=== PATIENT | male | born 2005 | race Caucasian/White ===

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

== ENCOUNTER 2024-03-22 21:08 | Emergency (ER) | payer MEDICAID, SELFPAY ==
[2024-03-22 21:10] VITALS: BP 138/114; PULSE 109; RESP 18; TEMP 36.6; O2SAT 96
--- NOTE | 2024-03-22 23:02 | EDS_ITS ---
HPI History of Present Illness Chief Complaint: Allergic Reaction Informant: patient Narrative Narrative: Patient is a 18-year-old male with past medical history of of anxiety. He states that he ate salsa today and then developed a rash/welts across his head and face that then began to spread down his body. He states he took [id number] Benadryl and there was improvement of symptoms but then they returned and secondary to the return of the rash presents for evaluation. At this time he denies any trouble breathing or swallowing. He does state he also has used a new shampoo recently but is confident that his symptoms are related to the ingestion of salsa prior to the rash beginning PFSH PFSH Medical History Nicotine dependence ABIGAIL (generalized anxiety disorder) Mood disorder ADD (attention deficit disorder) Home Medications ?Medication ?Instructions ?Recorded ?Last Taken ?Type bupropion HCl 300 mg 24 hr tablet, 300 mg PO QAM 90 days #90 tabs 02/28/24 Unknown Rx extended release escitalopram oxalate 10 mg tablet 10 mg PO DAILY #30 tabs 02/28/24 Unknown Rx (Lexapro) prednisone 10 mg tablet 10 mg PO UD #33 tabs 03/22/24 Unknown Rx Allergy/AdvReac Type Severity Reaction Status Date / Time sertraline (From Zoloft) Allergy Severe Other Verified 03/22/24 21:09 lisdexamfetamine (From AdvReac Other Verified 03/22/24 21:09 Vyvanse) Family History Other Alcoholism Anemia Anxiety Arthritis Asthma Cancer Diabetes Liver disease Mental disorder Seizures Surgical History Hx of tonsillectomy Social History Smoking Status: Current every day smoker tobacco type: cigarettes alcohol intake: never substance use type: does not use what type of physical activity do you participate in: none ROS ROS ED Constitutional Constitutional ED: Denies chills or fever(s) Eyes Eyes: Denies blurry vision or change in vision ENT ENT ED: Denies sore throat Cardiovascular Cardiovascular: Denies chest pain, palpitations or racing heartbeat Respiratory/Chest Respiratory/Chest: Denies cough or dyspnea Gastrointestinal Gastrointestinal: Denies abdominal pain, diarrhea, nausea or vomiting Genitourinary Genitourinary ED: Denies dysuria Musculoskeletal Musculoskeletal: Denies myalgias Integumentary Reports rash Neurologic Neurologic: Denies headache(s) Hematologic/Lymphatic Hematologic/Lymphatic: Denies easy bleeding or easy bruising Allergic/Immunologic Allergic/Immunologic ED: Reports urticaria; Denies mouth swelling or tongue swelling EXAM Physical Exam Const Vital Signs: 03/22/24 21:10 Temperature 97.8 F Temperature Source Temporal Pulse Rate 109 H Respiratory Rate 18 Blood Pressure 138/114 H Blood Pressure Mean 122 Pulse Ox 96 Oxygen Delivery Method Room Air Positive well nourished and well developed General Appearance ED: well developed HEENT HEENT Narrative: Patient has a erythematous urticarial blanchable rash across the forehead cheeks and chin that also extends into the upper back and chest No tongue or lip swelling No oral lesions no airway edema or compromise Eyes PERRL and EOMs intact bilaterally Neck supple Resp normal respiratory effort and clear to auscultation bilaterally Resp Narrative: No nasal flaring retractions tachypnea or accessory muscle use Cardio regular rate and regular rhythm Extremity normal to inspection Neuro oriented x3, CN's II-XII intact bilaterally and no sensory deficits noted Sensorium / Orientation: alert Motor Exam: strength 5/5 throughout Psych Mood & Affect: anxious Skin Skin Narrative: Urticarial-like lesions across the forehead cheeks upper back and chest without involvement of the palms or soles or into the lower extremity MDM MDM MDM Narrative Medical decision making narrative: Patient arrived to the ER hypertensive but otherwise in no acute distress. He states he ate salsa and then developed a rash. The exam is consistent with allergic reaction with urticaria but he does not have tongue or lip swelling oral lesions or airway compromise therefore there is no need for emergent airway stabilization. The distribution of the rash would suggest this is more contact related to his recent change in shampoo. The patient is more adamant that it is related to the food ingestion even though the rash does not start on the abdomen or chest and progressed out it was all in the head and down. Either way he does not have signs of Henderson-Trevor syndrome he is not in anaphylaxis he does not have airway compromise there is no need for workup other than treatment with steroids at this time and he safe for discharge History & Record Review Discussion w/independent historian: Patient Discharge Plan Triage Chief Complaint: Allergic Reaction ED Provider: Maninder Echeverria Dx/Rx/DC Orders Clinical Impression: Allergic reaction, ABIGAIL (generalized anxiety disorder), ADHD Instructions: ED General Allergic Reactions Prescriptions: New prednisone 10 mg tablet 10 mg PO UD Qty: 33 0RF Rx Instructions: Take 4 tablets daily for 3 days, then 3 daily for 3 days, then 2 daily for 3 days, then 1 a day for 3 days then 1 QOD for 3 doses. No Action bupropion HCl 300 mg tablet extended release 24 hr 300 mg PO QAM 90 Days Qty: 90 2RF escitalopram oxalate [Lexapro] 10 mg tablet 10 mg PO DAILY Qty: 30 2RF Primary Care Provider: Jv Mcdaniel Referrals: Jv Mcdaniel MD [Primary Care Provider] - Dejuan Christian MD [Med Staff - [employer]] - Activity Restrictions/Additional Instructions: Use the prednisone for improved allergic reaction control. You may continue up to 2 Benadryl 3 times a day if needed for further allergic reaction relief. Follow-up with your family doctor for repeat evaluation and return to the ER should you have any further concern Print Language: [place] Citizen Disposition Disposition: Home, Self Care Discharge Date/Time: 03/22/24 23:18
[2024-03-22 23:17] VITALS: BP 135/99; PULSE 81; RESP 16; TEMP 36.6; O2SAT 99
[2024-03-22] MEDS: predniSONE 20 MG Tablet 60 MG PO (23:17)
== END 2024-03-22 23:18 | disposition home or self-care (01) ==
PROVIDERS: Emergency Provider Emergency Medicine; PCP Family Medicine; Visit Provider Emergency Medicine
DX: T78.40XA Allergy, unspecified, initial encounter (principal); F41.1 Generalized anxiety disorder; F90.9 Attention-deficit hyperactivity disorder, unspecified type; F17.210 Nicotine dependence, cigarettes, uncomplicated; Z79.899 Other long term (current) drug therapy; X58.XXXA Exposure to other specified factors, initial encounter
CPT/HCPCS: 99283

== ENCOUNTER 2024-06-21 15:01 | Emergency (ER) | payer MEDICAID, SELFPAY ==
[2024-06-21 15:02] VITALS: BP 118/105; PULSE 120; RESP 18; TEMP 37.2; O2SAT 98
--- NOTE | 2024-06-21 15:15 | EX.ED.DYSGE1 ---
HPI <KAUSHIK Armenta - Last Filed: 06/21/24 16:26> History of Present Illness Chief Complaint: Nausea/Vomiting Narrative Narrative: Patient is a 18-year-old male with history of obesity, anxiety, depression who presents emerged permit with nausea vomiting diarrhea that began last evening. Per the mother, patient did have an infection in his bowels a few months that required antibiotics. There is concern. Pay states that the vomiting has decreased slightly however he is extremely nauseous. He is also had continued diarrhea 3-4 times a day. Here for evaluation. Denies any blood in stool or vomit. PFSH <KAUSHIK Armenta - Last Filed: 06/21/24 16:26> PFS Medical History Nicotine dependence ABIGAIL (generalized anxiety disorder) Mood disorder ADD (attention deficit disorder) Home Medications ?Medication ?Instructions ?Recorded ?Last Taken ?Type bupropion HCl 300 mg 24 hr tablet, 300 mg PO QAM 90 days #90 tabs 02/28/24 Unknown Rx extended release cetirizine 10 mg tablet 10 mg PO BID 05/07/24 Unknown History escitalopram oxalate 20 mg tablet 20 mg PO DAILY #30 tabs 05/07/24 Unknown Rx dicyclomine 20 mg tablet 20 mg PO TID #20 tabs 06/21/24 Unknown Rx ondansetron 4 mg disintegrating 4 mg PO Q8H PRN PRN Nausea #10 tabs 06/21/24 Unknown Rx tablet Allergy/AdvReac Type Severity Reaction Status Date / Time sertraline (From Zoloft) Allergy Severe Other Verified 06/21/24 15:02 lisdexamfetamine (From AdvReac Other Verified 06/21/24 15:02 Vyvanse) Family History Other Alcoholism Anemia Anxiety Arthritis Asthma Cancer Diabetes Liver disease Mental disorder Seizures Surgical History Hx of tonsillectomy Social History Smoking Status: Current every day smoker tobacco type: cigarettes alcohol intake: never substance use type: does not use what type of physical activity do you participate in: none ROS <VERN ArmentaC - Last Filed: 06/21/24 16:26> ROS ED ROS Narrative Constitutional: Negative for fever, chills, weight loss, weakness Eyes: Negative for vision loss, vision change, double vision ENT: Negative for any sore throat, ear pain, congestion Cardiovascular: Negative for any chest pain, tightness, palpitations Respiratory: Negative for any cough, sputum production, hemoptysis, dyspnea, dyspnea on exertion, orthopnea Gastrointestinal: Negative for any constipation, blood in stool, blood in vomit. Positive for abdominal cramping, nausea vomiting diarrhea : Negative for any urinary frequency, dysuria, retention, blood in urine Muscle skeletal: Negative for any neck pain, back pain Neurological: Negative for any headache, syncope, dizziness Skin: Negative for any rashes, itching, abrasions, lacerations Psychiatric: Negative for any depression, anxiety, stress, suicidal ideation, homicidal ideation Hematologic: Negative for any excessive bruising, easy bleeding EXAM <KAUSHIK Armenta - Last Filed: 06/21/24 16:26> Physical Exam Narrative Exam Narrative: Vital signs reviewed. Patient is in no distress, slightly tachycardic HEET: Head normocephalic atraumatic, TMs clear bilaterally. Posterior pharynx is clear, dry mucous membranes. Nares clear bilaterally. Neck: Supple with no lymphadenopathy or tenderness. No signs of meningismus. Cardiac: Regular rate and rhythm no murmurs gallops or rubs, equal peripheral pulses bilaterally. Respiratory: Lungs clear to auscultation bilaterally. No chest tenderness. Abdomen: Soft, nontender, nondistended. No abdominal bruit or pulsatile masses. No hepatosplenomegaly. Active bowel sounds in all quadrants Extremities: No peripheral edema, no signs of gross trauma or deformity. Active full range of motion of all extremities. Neuro: Cranial nerves II through XII intact, no focal neurological deficits. Skin: Clean dry and intact with no rash, purpura, petechiae, vesicles or pustules. Backs/flank: No CVA tenderness, no midline spinal tenderness, no deformity. Psych: Normal mood and affect. No SI, HI or acute psychosis. Const Vital Signs: 06/21/24 15:02 Temperature 98.9 F Temperature Source Oral Pulse Rate 120 H Respiratory Rate 18 Blood Pressure 118/105 H Blood Pressure Mean 109 Pulse Ox 98 Oxygen Delivery Method Room Air Positive well nourished, well developed and obese General Appearance ED: well developed Nutritional Appearance: obese <Dr. Fred Booker MD - Last Filed: 06/21/24 16:20> Physical Exam Const Vital Signs: 06/21/24 15:02 Temperature 98.9 F Temperature Source Oral Pulse Rate 120 H Respiratory Rate 18 Blood Pressure 118/105 H Blood Pressure Mean 109 Pulse Ox 98 Oxygen Delivery Method Room Air MDM <KAUSHIK Aremnta - Last Filed: 06/21/24 16:26> [facility] Lab Data Labs: Laboratory Results - last 24 hr 06/21/24 15:27 WBC 17.3 H RBC 5.91 Hgb 16.6 H Hct 49.7 MCV 84.1 MCH 28.1 MCHC 33.4 RDW Std Deviation 40.2 RDW Coeff of Winifred 13.2 Plt Count 373 MPV 9.9 Immature Gran % (Auto) 0.800 Neut % (Auto) 88.5 H Lymph % (Auto) 3.5 L [place] % (Auto) 6.7 Eos % (Auto) 0.1 Baso % (Auto) 0.4 Absolute Neuts (auto) 15.3 H Absolute Lymphs (auto) 0.61 L Nucleated RBC % 0 Sodium 138 Potassium 3.9 Chloride 102 Carbon Dioxide 20.8 L Anion Gap 15 BUN 19 Creatinine 1.08 Est GFR (MDRD) Non-Af 101 BUN/Creatinine Ratio 17.2 Glucose 121 H Calcium 9.9 Total Bilirubin 0.97 AST 28 ALT 46 Alkaline Phosphatase 69 Total Protein 8.2 Albumin 4.7 Globulin 3.5 Albumin/Globulin Ratio 1.3 Lipase 16 Treatment and Re-Evaluation :: Differential diagnosis includes however is not limited to: Gastritis, viral gastroenteritis, cholecystitis, bowel obstruction, diverticulitis, ulcerative colitis Patient is slightly tachycardic however looks well-appearing. Does not look toxic. Presenting to the emergency department for nausea, vomiting, and diarrhea that is been ongoing since last evening. Patient will receive abdominal lab such as CBC CMP lipase, IV fluid Zofran Toradol as well as IM Bentyl. Patient will need to be reevaluated. On reevaluation, the patient's abdominal exam was unremarkable. Patient's laboratory values showed a CBC shows slight leukocytosis 17.3, previous when he had something similar, it was elevated. Chemistries are unremarkable. Patient is now taking ice chips. Patient will receive the rest of his p.o. fluids. He will try to decrease his marijuana use. All questions answered, stable for discharge <Dr. Fred Booker MD - Last Filed: 06/21/24 16:20> [facility] Narrative Medical decision making narrative: I have personally performed a face to face assessment of the patient and have reviewed the MATEUS Note. I performed a substantive portion of the visit including all aspects of the following. My johnson findings include: History is [18-year-old male intermittent nausea vomiting. Was seen here several weeks ago had a CAT scan and labs. He does occasionally smoke marijuana. Denies any prior abdominal surgery. He also has some diarrhea. No fever no dysuria.] Exam is [anterior male no acute distress sitting upright in bed. Vital signs are stable afebrile he does not look septic or toxic. Does not look significantly dehydrated. Family member present in room. H EENT exam pupils round react light. Mytrex members. Neck nontender no lymphadenopathy. No meningismus. Lungs clear to auscultation bilaterally. Heart regular rhythm rate about 105 no murmur. Chest wall ribs nontender. Abdomen soft nondistended normal bowel sounds without peritoneal signs. No hernia or mass. No obstruction. Minimal epigastric periumbilical tenderness. Right upper or right lower quadrant unremarkable. Moving all 4 extremities. Nontender no edema. Normal strength. Normal range of motion. Neurologically awake and alert no focal motor deficits.] Medical Decision Making [18-year-old male nausea vomiting. Suspect cannabis induced vomiting. Treated with IV fluids Zofran. Screening labs being obtained. However he did have a recent CT and labs several weeks ago. Clinically I do not think this is a bowel obstruction. Possibly a viral illness. It is not appendicitis or gallbladder disease. Unlikely to be pancreatitis.] Other additions or changes: [None] History & Record Review Discussion w/independent historian: Patient and Family Additional record(s) reviewed:: Prior inpatient record, Prior outpatient record, Prior ED visit and Prior labs Lab Data Attestation: I reviewed the patient's lab results. Lab results narrative: CBC shows a white count 17.3. Last time he had an episode like this several weeks ago it was 25. I think that is from the vomiting. H&H is 16.6 and 49. Platelets 373. I do not believe patient needs imaging. He just recently had abdominal imaging. His exam is benign. Labs: Laboratory Results - last 24 hr 06/21/24 15:27 WBC 17.3 H RBC 5.91 Hgb 16.6 H Hct 49.7 MCV 84.1 MCH 28.1 MCHC 33.4 RDW Std Deviation 40.2 RDW Coeff of Winifred 13.2 Plt Count 373 MPV 9.9 Immature Gran % (Auto) 0.800 Neut % (Auto) 88.5 H Lymph % (Auto) 3.5 L [place] % (Auto) 6.7 Eos % (Auto) 0.1 Baso % (Auto) 0.4 Absolute Neuts (auto) 15.3 H Absolute Lymphs (auto) 0.61 L Nucleated RBC % 0 Sodium 138 Potassium 3.9 Chloride 102 Carbon Dioxide 20.8 L Anion Gap 15 BUN 19 Creatinine 1.08 Est GFR (MDRD) Non-Af 101 BUN/Creatinine Ratio 17.2 Glucose 121 H Calcium 9.9 Total Bilirubin 0.97 AST 28 ALT 46 Alkaline Phosphatase 69 Total Protein 8.2 Albumin 4.7 Globulin 3.5 Albumin/Globulin Ratio 1.3 Lipase 16 Discharge Plan Triage Chief Complaint: Nausea/Vomiting ED Midlevel Provider: Ron De Leon ED Provider: Fred Booker Dx/Rx/DC Orders Clinical Impression: Vomiting, Cyclic vomiting syndrome Instructions: ED Cyclic Vomiting Syndrome, ED Vomiting (Adult) Prescriptions: New dicyclomine 20 mg tablet 20 mg PO TID Qty: 20 0RF ondansetron 4 mg tablet,disintegrating 4 mg PO Q8H PRN PRN (Reason: Nausea) Qty: 10 0RF No Action bupropion HCl 300 mg tablet extended release 24 hr 300 mg PO QAM 90 Days Qty: 90 2RF cetirizine 10 mg tablet 10 mg PO BID escitalopram oxalate 20 mg tablet 20 mg PO DAILY Qty: 30 2RF Primary Care Provider: Jv Mcdaniel Referrals: Jv Mcdaniel MD [Primary Care Provider] - 3-5 Days if not improving Activity Restrictions/Additional Instructions: Plenty of fluids and rest. Slowly increase your diet as tolerated. Zofran as needed for nausea. Follow-up with your doctor as needed. Return if worse. This may be caused by marijuana use or THC use. Often you need to stop and it may take weeks or months to totally resolve. It is called cannabis induced nausea or cannabis induced vomiting or cyclic vomiting syndrome. Print Language: [place] Disposition Disposition: Home, Self Care
[2024-06-21] MEDS: Ondansetron 4 MG/2 ML Vial IV (15:39)
[2024-06-21] MEDS: 0.9% Normal Saline (1000mL) 1,000 ML 999 ML IV (15:39)
[2024-06-21] MEDS: Dicyclomine 20 MG/2 ML Vial IM (15:40)
[2024-06-21] MEDS: Ketorolac 15 MG/ML Vial IV (15:40)
[2024-06-21 15:43] LABS: Absolute Lymphocyte Count 0.61 X10^3/uL (0.83-4.51); Absolute Neutrophil Count 15.3 X10^3/uL (2.0-7.7); Basophil# 0.07 X10^3/uL; Basophil% 0.4 % (0-1); Eosinophil# 0.01 X10^3/uL; Eosinophils% 0.1 % (0-5); Hematocrit 49.7 % (40-54); Hemoglobin 16.6 g/dL (13.0-16.5); Lymphocyte # 0.61 X10^3/ul (0.83-4.51); Lymphocyte % 3.5 % (19-41); Mean Corp Hgb Conc 33.4 g/dL (32-36); Mean Corpuscular Hgb 28.1 pg (27.0-32.0); Mean Corpuscular Volume 84.1 fL (80-94); Mean Platelet Vol. 9.9 fl (6.2-12.0); Monocyte# 1.16 X10^3/uL; Monocyte% 6.7 % (0-10); NRBC Flagged by Analyzer 0 % (0-5); Neutrophil # 15.27 X10^3/uL (2.7-7.7); Neutrophil % 88.5 % (47-70); Platelet Count 373 K/mm3 (150-450); RBC Distribution Width CV 13.2 % (11.6-14.6); RBC Distribution Width SD 40.2 fl (35.1-43.9); Red Blood Count 5.91 M/mm3 (4.6-6.2); White Blood Count 17.3 K/mm3 (4.4-11.0)
[2024-06-21 16:12] LABS: ALB/GLOB Ratio 1.3 RATIO (0.9-2.4); AST(SGOT) 28 U/L (<=37); Alanine Aminotransfer ALT/SGPT 46 U/L (<=46); Albumin, Serum 4.7 g/dL (3.5-5.0); Alkaline Phosphatase 69 U/L (40-129); Anion Gap 15 (5-15); BUN 19 mg/dL (4-19); BUN/Creat Ratio 17.2 RATIO (10-20); Calcium,Total 9.9 mg/dL (7.6-11.0); Carbon Dioxide 20.8 mmol/L (21.0-32.0); Chloride 102 mmol/L (98-108); Creatinine, Serum 1.08 mg/dL (0.70-1.20); EST Glomerular Filtration Rate 101 (>60); Globulin 3.5 g/dL (2.2-4.2); Glucose 121 mg/dL (70-99); Lipase 16 U/L (13-75); Potassium 3.9 mmol/L (3.3-5.1); Protein, Total 8.2 g/dL (5.9-8.4); Sodium Level 138 mmol/L (133-145); Total Bilirubin 0.97 mg/dL (0.00-1.30)
[2024-06-21 16:47] VITALS: BP 128/87; PULSE 100; RESP 16; O2SAT 99
== END 2024-06-21 16:48 | disposition home or self-care (01) ==
PROVIDERS: Nurse Practitioner; Emergency Provider Emergency Medicine; PCP Family Medicine; Visit Provider Emergency Medicine
DX: R11.15 Cyclical vomiting syndrome unrelated to migraine (principal); F12.90 Cannabis use, unspecified, uncomplicated; F17.210 Nicotine dependence, cigarettes, uncomplicated
CPT/HCPCS: 80053; 83690; 85025; 96372; 96374; 96375; 99284; A4216; J2405